=== PATIENT | male | born 1950 | race Two or more races ===

== ENCOUNTER 2025-09-07 03:42 | Emergency (ER) | payer SELFPAY ==
[~2025-09-07] VITALS: Ht 172.7 cm; Wt 573.0 kg
[2025-09-07 03:45] VITALS: O2SAT 99
[2025-09-07] MEDS ORDERED: KETOROLAC 15MG/ML VIAL IV ONE (05:15)
[2025-09-07 05:41] VITALS: BP 132/75; PULSE 63; RESP 15; TEMP 36.7; O2SAT 100
== END 2025-09-07 05:43 | disposition left against medical advice (07) ==
LOC: ER 03:42 → CMPBEDREQ 07:51
DX: R07.89 Other chest pain (principal); I44.0 Atrioventricular block, first degree; I45.10 Unspecified right bundle-branch block; F31.9 Bipolar disorder, unspecified; F12.90 Cannabis use, unspecified, uncomplicated; Z72.0 Tobacco use; Z53.29 Procedure and treatment not carried out because of patient's decision for other reasons
CPT/HCPCS: 71045; 93005; 99283; 99406